=== PATIENT | male | born 1995 | race Caucasian/White ===

== ENCOUNTER → 2016-11-29 | Emergency (ER) | payer OTHER ==
[~2016-11-29] VITALS: Ht 182.9 cm; Wt 93.0 kg
[~2016-11-29] MED LIST: GASTROGRAFIN SOLUTION 30ML (Q9963) PO ONE; GASTROGRAFIN SOLUTION 30ML PO ONE; ISOVUE-370 76% 100ML VIAL (Q9967) As Ordered ONE; METAL LOCK LOOP XX ONE; REGL10TA6 PO
[2016-11-29 05:26] LABS: BASO # 0.1 K/mm3 (0.0-0.2); BASO % 0.8 % (0.0-1.0); EOS # 0.7 K/mm3 (0.0-0.50); EOS % 7.4 % (0.0-3.0); LARGE UNSTAINED CELL # 0.3 K/mm3 (0.0-0.4); LARGE UNSTAINED CELL % 2.5 % (0.0-4.0); LYMPH # 3.2 K/mm3 (1.5-6.5); LYMPH % 32.6 % (24.0-44.0); MEAN CORPUSCULAR HEMOGLOBIN 31.1 pg (27.0-33.0); MEAN CORPUSCULAR HGB CONC 35.9 g/dl (32.0-36.5); MEAN CORPUSCULAR VOLUME 86.6 fl (80.0-96.0); MONO # 0.6 K/mm3 (0.0-0.8); MONO % 5.8 % (0.0-5.0); NEUTROPHILS % 50.9 % (36.0-66.0); PLATELET COUNT, AUTOMATED 237 k/mm3 (150-450); RED CELL DISTRIBUTION WIDTH 12.1 % (11.5-14.5); WHITE BLOOD COUNT 9.8 K/mm3 (4.0-10.0)
[2016-11-29 05:30] LABS: ALBUMIN 4.1 GM/DL (3.2-5.2); ALBUMIN/GLOBULIN RATIO 1.24 (1.00-1.93); ALKALINE PHOSPHATASE 77 U/L (45-117); ALT/SGPT 55 U/L (12-78); AMYLASE 23 U/L (25-115); ANION GAP 6 MEQ/L (8-16); AST/SGOT 30 U/L (15-37); BILIRUBIN,DIRECT < 0.1 MG/DL (0.0-0.2); BILIRUBIN,TOTAL 0.4 MG/DL (0.2-1.0); BLOOD UREA NITROGEN 17 MG/DL (7-18); CALCIUM LEVEL 9.1 MG/DL (8.5-10.1); CARBON DIOXIDE LEVEL 28 MEQ/L (21-32); CHLORIDE LEVEL 105 MEQ/L (98-107); GLUCOSE, FASTING 102 MG/DL (70-105); POTASSIUM SERUM 4.2 MEQ/L (3.5-5.1); SODIUM LEVEL 139 MEQ/L (136-145); TOTAL PROTEIN 7.4 GM/DL (6.4-8.2)
--- NOTE | 2016-11-29 07:10 | REPUSA ---
CLINICAL HISTORY: Abdominal pain. TECHNIQUE: Multiple axial, sagittal and coronal CT images were obtained through the abdomen and pelvi s after administration of oral and intravenous contrast material. COMMENTS: The liver is of decreased attenuation without mass or defect. There is no intra or extrahepatic bilia ry ductal dilatation. The spleen is normal. The gallbladder is within normal limits. The pancreas is of normal contour and attenuation characteristics. There is no evidence of adrenal mass. Both kidneys demonstrate prompt and equal nephrograms. The kidneys are normal in size, shape and conf iguration. There is no evidence of renal or ureteral mass. No renal or ureteral calculi are identifie d. There is no hydroureter or hydronephrosis. No evidence for appendicitis. There is no bowel wall thickening. No evidence for small or large jr l obstruction. There is no evidence of abdominal ascites or lymphadenopathy. There is no evidence of intrinsic or extrinsic bladder mass. Mild diffuse thickening of the bladder. There is no pelvic ascites or lymphadenopathy. Images of the lung bases show no evidence of pleural or parenchymal mass. There are no pleural effusi ons. The bony structures are free of lytic or blastic lesions. Multilevel degenerative changes are seen in volving the thoracolumbar spine. Scattered calcifications are seen involving the aorta and major bran ches compatible with atherosclerosis. IMPRESSION: Mild fatty liver infiltration. Mild thickening of the bladder. Underdistention versus mild cystitis. Thank you for your kind referral of this patient.
[2016-11-29 07:44] VITALS: BP 133/58
== END | disposition home or self-care (01) ==
LOC: M ED 03:25
DX: R10.11 Right upper quadrant pain (principal); R10.31 Right lower quadrant pain; G89.29 Other chronic pain; F17.200 Nicotine dependence, unspecified, uncomplicated; Z88.1 Allergy status to other antibiotic agents; Z88.5 Allergy status to narcotic agent
CPT/HCPCS: 36415; 74177; 80048; 80076; 81001; 82150; 83690; 85025; 87086; 99284; Q9963; Q9967

== ENCOUNTER 2017-06-14 19:38 | Emergency (ER) | payer OTHER ==
[~2017-06-14] VITALS: Ht 182.9 cm; Wt 100.0 kg
[~2017-06-14 19:38] MED LIST changes: -GASTROGRAFIN SOLUTION 30ML (Q9963) PO ONE; -GASTROGRAFIN SOLUTION 30ML PO ONE; -ISOVUE-370 76% 100ML VIAL (Q9967) As Ordered ONE; -METAL LOCK LOOP XX ONE
[2017-06-14 19:46] VITALS: BP 135/81
[2017-06-14] MEDS ORDERED: LIDOCAINE 2% MDV 20 ML VIAL SC ONE (20:00)
--- NOTE | 2017-06-15 07:37 | REP ---
Left thumb four views : There is no fracture or dislocation. Mineralization and joint spaces are normal. There are no calcifications or foreign bodies. Impression: Negative left thumb. The . Signed by Lauri Soliz MD 06/15/2017 07:29 A
== END 2017-06-14 21:05 | disposition home or self-care (01) ==
LOC: M ED 19:38
DX: S61.012A Laceration without foreign body of left thumb without damage to nail, initial encounter (principal); W26.0XXA Contact with knife, initial encounter; Y92.009 Unspecified place in unspecified non-institutional (private) residence as the place of occurrence of the external cause; Y93.G3 Activity, cooking and baking; Y99.8 Other external cause status; Z87.891 Personal history of nicotine dependence; Z88.1 Allergy status to other antibiotic agents